=== PATIENT | female | born 1975 | race Caucasian/White ===

== ENCOUNTER 2021-10-20 16:24 | Emergency (ER) | payer OTHER ==
[~2021-10-20] VITALS: Ht 162.6 cm; Wt 74.8 kg
[~2021-10-20 16:24] MED LIST: CYCLOBENZAPRINE10 MG PO; MEDROL 4MG DOSEP4 MG PO; NAPROSYN375 MG PO
[2021-10-20 19:05] LABS: INFLUENZA A NAA NEGATIVE (NEGATIVE)
[2021-10-20 19:21] LABS: CORONAVIRUS 2019 SARS-COV-2 POSITIVE (NEGATIVE)
[2021-10-20] MEDS ORDERED: MEDROL 4MG DOSEP4 MG PO (19:27)
[2021-10-20] MEDS ORDERED: VENTOLIN HFA IN18 GM INH (19:27)
== END 2021-10-20 20:00 | disposition home or self-care (01) ==
LOC: FER 16:24
PROVIDERS: Nurse Practitioner Family
DX: U07.1 COVID-19 (principal); Z28.310 Unvaccinated for COVID-19
CPT/HCPCS: 71045; 96372; J1100; J1885; U0002